=== PATIENT | female | born 1990 | race Caucasian/White ===

== ENCOUNTER 2024-05-28 12:20 | Outpatient (CLI) | payer BC, OTHER ==
[2024-05-28 14:47] VITALS: BP 136/77; PULSE 99; RESP 16; TEMP 97.2
--- NOTE | 2024-05-30 13:37 | P.MSEPDOC ---
Presenting Problems - Arrival Data Date of Arrival on Unit: 05/28/24 Time of Arrival on Unit: 12:20 Mode of Transport: Ambulatory - Complaint OB-Reason for Admission/Chief Complaint: Pain Comment: lower right sided pain 09/25 Medical History - Information : 1 Para: 0 Term: 0 : 0 Abortions: Spontaneous or Elective: 0 Number of Living Children: 0 - Gestational Age Gestational Age by STEVIE (wks/days): 23 Weeks and 5 Days Review of Systems - Review of Systems Constitutional: No problems Breast: No problems ENT: No problems Cardiovascular: No problems Respiratory: No problems Gastrointestinal: No problems Genitourinary: No problems Musculoskeletal: No problems Neurological: No problems Skin: No problems Vital Signs - Temperature Temperature: 97.2 F Temperature Source: Temporal Artery Scan - Pulse Right Brachial Pulse Rate: 99 Pulse Assessment Method: Automatic Cuff - Respirations Respiratory Rate: 16 Oxygen Delivery Method: Room Air O2 Sat by Pulse Oximetry: 97 - Blood Pressure Right Arm Sitting Blood Pressure: 136/77 Blood Pressure Mean: 96 Blood Pressure Source: Automatic Cuff Medical Screen Scoring - Uterine Contractions Frequency From (mins): 0 - Assessment - Baby A Baseline FHR: 150 Heart Rate - NICHD Category: Category I (Normal) NST: Reactive Physician Notification - Physician Notified Physician Notified Date: 05/28/24 Physician Notified Time: 12:49 Physician: Maggie Burns New Order Received: Yes (d/c with instruction) Maternal Triage Index - Maternal Triage Index Presenting for scheduled procedure w/no complaint: No - Stat/Priority 1 Stat Priority 1: No - Urgent/Priority 2 Urgent Priority 2: Yes Provider Notified: Maggie Burns Provider Notified Time: 12:49 Criteria Met for Priority 2: 23.5 lower right sided pain Disposition - Disposition OB Disposition: Triage, Discharge to home, Written follow up instructions reviewed Discharge Date: 05/28/24 Discharge Time: 12:55 I agree with the RN Medical Screening Exam: Yes Case reviewed; plan agreed upon as documented in EMR&OBIX.: Yes Diagnosis: RELATED CONDITIONS, UNSPECIFIED, SECOND TRIMESTER
== END 2024-05-28 12:55 | disposition home or self-care (01) ==
LOC: FBPOP 12:20
PROVIDERS: ATTEND Obstetrics & Gynecology Obstetrics
DX: O26.892 Other specified pregnancy related conditions, second trimester (principal); Z3A.23 23 weeks gestation of pregnancy; R52 Pain, unspecified
CPT/HCPCS: 99213

== ENCOUNTER 2024-07-21 02:31 | Outpatient (CLI) | payer BC ==
[2024-07-21] MEDS: ACETAMINOPHEN TAB 500 MG TAB PO STA (03:32)
[2024-07-21 03:46] LABS: Basophils % (A) 0 %; Eosinophils # (A) 0.1 k/uL (0-0.7); Eosinophils % (A) 2 %; HGB 11.2 gm/dL (11.4-16.0); Lymphocytes # (A) 1.6 k/uL (1.0-4.8); Lymphocytes % (A) 18 %; MCH 29.4 pg (25.0-35.0); MCHC 34.9 g/dL (31.0-37.0); MCV 84.1 fL (80.0-100.0); Mean Platelet Volume 7.7; Monocytes # (A) 0.4 k/uL (0-1.0); Monocytes % (A) 4 %; Neutrophils # (A) 6.6 k/uL (1.3-7.7); Neutrophils % (A) 75 %; Platelet Count 245 k/uL (150-450); RDW 13.1 % (11.5-15.5); WBC 8.8 k/uL (3.8-10.6)
[2024-07-21 04:40] LABS: ALT 17 U/L (4-34); AST 23 U/L (14-36); Amylase 58 U/L (30-110); Lipase 86 U/L (23-300)
--- NOTE | 2024-07-21 05:22 | US ---
EXAM: US Abdomen Limited, Gallbladder CLINICAL HISTORY: ITS.REASON US Reason: Right upper quadrant pain TECHNIQUE: Real-time ultrasound of the right upper quadrant with image documentation. COMPARISON: No relevant prior studies available. FINDINGS: Liver: The liver is enlarged measuring 20.7 cm. Increased echogenicity of the liver. No evidence of hepatic mass. Gallbladder: Unremarkable. No gallstones. Common bile duct: Unremarkable as visualized. No stones. No dilation. Pancreas: Unremarkable as visualized. Right kidney: Moderate right-sided hydronephrosis. IMPRESSION: 1. Nonspecific moderate right-sided hydronephrosis. 2. Hepatomegaly and hepatic steatosis.
--- NOTE | 2024-07-21 05:24 | US ---
EXAM: US Abdomen Complete CLINICAL HISTORY: ITS.REASON US Reason: PAIN TECHNIQUE: Real-time ultrasound of the abdomen with image documentation. COMPARISON: No relevant prior studies available. FINDINGS/IMPRESSION: The appendix is not visualized. No secondary signs of appendicitis. No free fluid or lymphadenopathy.
[2024-07-21 06:30] VITALS: BP 145/80; PULSE 94; RESP 16; TEMP 97.7
[2024-07-21 06:35] LABS: Appearance,Urine Clear (Clear); Bilirubin,Urine Negative (Negative); Blood,Urine Negative (Negative); Color,Urine Yellow; Glucose,Urine (UA) Negative (Negative); Hyaline Casts,Urine 1 /lpf (0-2); Ketones,Urine 1+ (Negative); Leukocyte Esterase,Urine Small (Negative); Mucus,Urine Few /hpf; Nitrite,Urine Negative (Negative); Protein,Urine Negative (Negative); RBC,Urine 1 /hpf (0-5); Squamous Epithelial Cell,Urine 3 /hpf (0-4); Urobilinogen,Urine <2.0 mg/dL (<2.0); WBC,Urine 2 /hpf (0-5)
--- NOTE | 2024-08-10 12:45 | P.MSEPDOC ---
Presenting Problems - Arrival Data Date of Arrival on Unit: 07/21/24 Time of Arrival on Unit: 02:31 Mode of Transport: Portable - Complaint OB-Reason for Admission/Chief Complaint: Other Comment: Right upper quadrant abdominal pain Medical History - Information : 1 Para: 0 Term: 0 : 0 Abortions: Spontaneous or Elective: 0 Number of Living Children: 0 - Gestational Age Gestational Age by STEVIE (wks/days): 31 Weeks and 3 Days Review of Systems - Review of Systems Constitutional: No problems Breast: No problems ENT: No problems Cardiovascular: No problems Respiratory: No problems Gastrointestinal: No problems Genitourinary: No problems Musculoskeletal: No problems Neurological: No problems Skin: No problems Vital Signs - Temperature Temperature: 97.7 F Temperature Source: Temporal Artery Scan - Pulse Pulse Oximetery Pulse Rate: 94 Pulse Assessment Method: Pulse Oximetry - Respirations Respiratory Rate: 16 Oxygen Delivery Method: Room Air O2 Sat by Pulse Oximetry: 98 - Blood Pressure Right Arm Blood Pressure: 145/80 Blood Pressure Mean: 101 Blood Pressure Source: Automatic Cuff Medical Screen Scoring - Cervical Exam Membranes: Intact - Uterine Contractions Intensity: Absent Resting: Soft to palpation - Assessment - Baby A Baseline FHR: 130 Physician Notification - Physician Notified Physician Notified Date: 07/21/24 Physician Notified Time: 02:59 Physician: Tiera Geller Order Received: Yes - Notification Comment Comment: Dr. Geller called, notified of pt complaints of right upper quadrant abdominal pain consistent today rated 4/10, GA, G/P, VS, CAT1 FHT, no contractions on monitor. 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 Abdomen soft and nontender on palpation and pt states pain feels better when pushed against. Orders received for gallbladder ultrasound and Tylenol. Maternal Triage Index - Maternal Triage Index Presenting for scheduled procedure w/no complaint: No - Stat/Priority 1 Stat Priority 1: No - Urgent/Priority 2 Urgent Priority 2: No - Prompt/Priority 3 Prompt Priority 3: No - Non-Urgent/Priority 4 Non-Urgent Priority 4: Yes Criteria Met for Priority 4: Right upper abdominal pain rated 4/10 Disposition - Disposition OB Disposition: Discharge to home Discharge Date: 07/21/24 Discharge Time: 05:44 I agree with the RN Medical Screening Exam: Yes Physician's MSE Comment: I have neither seen nor examined the patient Case reviewed; plan agreed upon as documented in EMR&OBIX.: Yes Diagnosis: MATERNAL CARE FOR PROBLEM, UNSP, THIRD * DO NOT USE *
== END 2024-07-21 05:44 | disposition home or self-care (01) ==
LOC: FBPOP 02:31
PROVIDERS: ATTEND Obstetrics & Gynecology
DX: O36.93X0 Maternal care for fetal problem, unspecified, third trimester, not applicable or unspecified (principal); Z3A.31 31 weeks gestation of pregnancy
CPT/HCPCS: 36415; 59025; 76705; 81001; 82150; 83690; 84450; 84460; 85025; 99213

== ENCOUNTER 2024-09-03 11:43 | Inpatient (IN) | payer BC ==
[2024-09-03] MEDS ORDERED: hydrALAZINE HCL 20 MG/ML 1 ML VIAL IVP PRN (12:22)
[2024-09-03] MEDS ORDERED: LABETALOL 5 MG/ML VIAL MDV IVP PRN ×2 (12:22)
[2024-09-03 12:30] LABS: ALT 13 U/L (4-34); AST 20 U/L (14-36); African American GFR (CKD) >90 (>60 ml/min/1.73 sqM); Blood Urea Nitrogen 12 mg/dL (7-17); LDH 173 U/L (120-246); Non-African American GFR(CKD) >90 (>60 ml/min/1.73 sqM); Uric Acid 5.1 mg/dL (3.7-7.4)
[2024-09-03 12:31] LABS: Basophils % (A) 0 %; Eosinophils # (A) 0.1 k/uL (0-0.7); Eosinophils % (A) 1 %; HCT 34.7 % (34.0-46.0); HGB 11.8 gm/dL (11.4-16.0); Lymphocytes # (A) 1.3 k/uL (1.0-4.8); Lymphocytes % (A) 16 %; MCH 28.2 pg (25.0-35.0); MCHC 33.9 g/dL (31.0-37.0); Mean Platelet Volume 8.2; Monocytes # (A) 0.4 k/uL (0-1.0); Monocytes % (A) 5 %; Neutrophils # (A) 6.2 k/uL (1.3-7.7); Neutrophils % (A) 77 %; Platelet Count 266 k/uL (150-450); RBC 4.19 m/uL (3.80-5.40); RDW 13.2 % (11.5-15.5); WBC 8.1 k/uL (3.8-10.6)
[2024-09-03 13:04] LABS: Appearance,Urine Clear (Clear); Bilirubin,Urine Negative (Negative); Blood,Urine Negative (Negative); Color,Urine Yellow; Glucose,Urine (UA) Negative (Negative); Ketones,Urine Negative (Negative); Leukocyte Esterase,Urine Small (Negative); Mucus,Urine Occasional /hpf; Nitrite,Urine Negative (Negative); PH, Urine 6.5 (5.0-8.0); Protein,Urine Trace (Negative); RBC,Urine <1 /hpf (0-5); Specific Gravity,Urine 1.017 (1.001-1.035); Squamous Epithelial Cell,Urine 3 /hpf (0-4); Urobilinogen,Urine <2.0 mg/dL (<2.0); WBC,Urine 1 /hpf (0-5)
[2024-09-03] MEDS: LACTATED RINGERS 1,000 ML IV SCH (13:10)
[2024-09-03] MEDS: LABETALOL 5 MG/ML VIAL MDV IVP PRN (13:14)
[2024-09-03 13:34] LABS: Creatinine,Urine Random 152.7 mg/dL; Protein/Creatinine Ratio,Urine 0.033
[2024-09-03 14:34] LABS: INR 0.8 (<1.2); Prothrombin Time 9.7 sec (10.0-12.5)
[2024-09-03 14:38] LABS: Partial Thromboplastin Time 20.8 sec (22.0-30.0)
[2024-09-03] MEDS: DINOPROSTONE 10 MG INSERT.ER VAGINAL ONE (14:57)
[2024-09-03] MEDS ORDERED: NALBUPHINE 10 MG/ML (10 ML MDV) IV PRN (19:26)
[2024-09-03] MEDS: CALCIUM CARBONATE 500 MG CHEWABLE PO PRN (20:11)
[2024-09-04] MEDS ORDERED: miSOPROStoL 200 MCG TAB PO PRN (03:45)
[2024-09-04] MEDS ORDERED: TRANEXAMIC 1,000 MG/100ML-NACL 1,000 MG in EMPTY BAG 1 BAG IV PRN (03:45)
[2024-09-04] MEDS ORDERED: CARBOPROST TROMETHAMINE 250 MCG/ML 1 ML AMP IM PRN (03:45)
[2024-09-04] MEDS ORDERED: OXYTOCIN 10 UNIT/ML 1 ML VIAL IM PRN (03:45)
[2024-09-04] MEDS ORDERED: TERBUTALINE 1 MG/ML VIAL SQ PRN (03:45)
[2024-09-04] MEDS ORDERED: METHYLERGONOVINE 0.2 MG/ML 1 ML AMP IM PRN (03:45)
[2024-09-04] MEDS ORDERED: LIDOCAINE 0.5% (PF) 5 MG/ML (50 ML SDV) SQ PRN (03:45)
[2024-09-04] MEDS ORDERED: miSOPROStoL 200 MCG TAB RECTAL PRN (03:45)
[2024-09-04] MEDS: AMPICILLIN 2,000 MG in SODIUM CHLORIDE 0.9% 100 ML IVPB STA (04:09)
[2024-09-04] MEDS: OXYTOCIN 30 UNITS/500 ML NS 30 UNIT in SALINE 1 500ML.BAG IV SCH (04:15)
[2024-09-04] MEDS: ACETAMINOPHEN IV (For NPO) 1,000 MG in EMPTY BAG 1 BAG IVPB STA (07:56)
[2024-09-04] MEDS: LABETALOL 100 MG TAB PO STA (07:56)
[2024-09-04] MEDS: AMPICILLIN 1,000 MG in SODIUM CHLORIDE 0.9% 50 ML IVPB SCH (08:28)
--- NOTE | 2024-09-04 09:13 | P.HPOB ---
History of Present Illness H&P Date: 09/03/24 Chief Complaint: IUP at 37-5/7 weeks, preeclampsia without severe features This is a 34-year-old G1, P0 at 37-5/7 weeks that presents to labor and delivery from the office after elevated blood pressures 150s to 160s over 100s were noted. Patient denied signs of symptoms of preeclampsia. Upon presentation to labor and delivery blood pressures were noted to be 160s to 170s over 100s. Patient was given IV labetalol x 1 with good relief of hypertension, follow-up blood pressure 130s over 80s. Patient has been receiving routine care which has been essentially un complicated to this point. Patient notes good movement denies contractions vaginal bleeding or loss of fluid. On blood work this patient is a blood type of A+, rubella status immune, hepatitis B surface antigen negative, HIV negative, RPR is nonreactive, grew beta strep culture is positive Review of Systems Constitutional: Denies chills, Denies fatigue, Denies fever Ears, nose, mouth and throat: Denies headache Cardiovascular: Reports leg edema Respiratory: Denies dyspnea Gastrointestinal: Denies constipation, Denies diarrhea, Denies heartburn, Denies nausea, Denies vomiting Genitourinary: Reports Past Medical History Past Medical History: No Reported History History of Any Multi-Drug Resistant Organisms: None Reported Past Surgical History: Adenoidectomy, Tonsillectomy Additional Past Surgical History / Comment(s): ureter surgery 1997 Past Anesthesia/Blood Transfusion Reactions: No Reported Reaction Past Psychological History: No Psychological Hx Reported Smoking Status: Never smoker Past Drug Use History: None Reported - Past Family History Mother History Unknown: Yes Family Medical History: Cancer Additional Family Medical History / Comment(s): breast cancer Brother(s) History Unknown: Yes Family Medical History: Neurologic Disorder Additional Family Medical History / Comment(s): epilepsy Medications and Allergies Home Medications Medication Instructions Recorded Confirmed Type Aspirin [Children's Aspirin] 81 mg PO DAILY 05/28/24 09/03/24 History Vit No.179/Iron/Folic 1 tab PO TID 05/28/24 09/03/24 History [ Tablet] Calcium Carbonate [Tums] 1,000 mg PO QID PRN 07/21/24 09/03/24 History Allergies Allergy/AdvReac Type Severity Reaction Status Date / Time No Known Allergies Allergy Verified 05/28/24 14:27 Exam Osteopathic Statement: *. No significant issues noted on an osteopathic structural exam other than those noted in the History and Physical/Consult. Vital Signs Temp Pulse Resp BP Pulse Ox 09/03/24 13:19 97.1 F L 88 17 184/84 98 Intake and Output 09/03/24 09/03/24 09/03/24 06:59 14:59 22:59 Other: # Voids 1 Weight 149.685 kg Targeted physical exam is performed this date Is a well-nourished well- developed female in no acute distress, breathing is nonlabored, heart has a regular rate and rhythm, abdomen is gravid, on cervical exam she is a type II/50/-3 station vertex presentation Cervidil is placed without difficulty. heart tones are noted to be category 1 and she is diane irregularly with irritability appreciated. Results Result Diagrams: 09/03/24 12:09 09/03/24 12:09 Abnormal Lab Results - Last 24 Hours (Table) 09/03/24 09/03/24 Range/Units 12:09 12:50 PT 9.7 L (10.0-12.5) sec APTT 20.8 L (22.0-30.0) sec Fibrinogen 548 H (200-500) mg/dL Urine Protein Trace H (Negative) Ur Leukocyte Esterase Small H (Negative) Urine Mucus Occasional H (None) /hpf Assessment and Plan (1) Term Current Visit: Yes Status: Acute Code(s): Z34.90 - ENCNTR FOR SUPRVSN OF NORMAL , UNSP, UNSP TRIMESTER SNOMED Code(s): 29263465 (2) Pre-eclampsia Current Visit: Yes Status: Acute Code(s): O14.90 - UNSPECIFIED PRE- ECLAMPSIA, UNSPECIFIED TRIMESTER SNOMED Code(s): 919269476 (3) Positive GBS test Current Visit: Yes Status: Acute Code(s): B95.1 - STREPTOCOCCUS, GROUP B, CAUSING DISEASES CLASSD ELSWHR SNOMED Code(s): 868495029 Plan: Admit to labor and delivery for Cervidil induction of labor Regular diet while Cervidil in place Clear liquids after midnight Options for analgesia Nubain, nitrous, epidural if making cervical change Continuous monitoring, toco Plan Cervidil removal at 3 AM, Pitocin to begin around 4 AM for augmentation of labor. Plan is discussed with patient and her significant other all questions are answered, patient agrees.
[2024-09-04] MEDS ORDERED: SODIUM CHLORIDE 0.9% 250 ML BAG ONE (11:56)
[2024-09-04] MEDS ORDERED: fentaNYL (PF) 50 MCG/ML 5 ML AMP ONE (11:56)
[2024-09-04] MEDS ORDERED: ROPIVACAINE 5 MG/ML 30 ML VIAL ONE (11:56)
[2024-09-04] MEDS: LABETALOL 200 MG TAB PO SCH (12:37)
[2024-09-04] MEDS: LACTATED RINGERS 1,000 ML IV SCH ×2 (14:25→22:47)
[2024-09-04] MEDS: ONDANSETRON 4 MG/2 ML VIAL IVP STA (16:59)
[2024-09-04] MEDS: CITRIC ACID-SODIUM CITRATE 15 ML CUP PO ONE (19:30)
[2024-09-04] MEDS: ceFAZolin 3 GM in SODIUM CHLORIDE 0.9% 100 ML IVPB ONE (19:41)
[2024-09-04] MEDS ORDERED: fentaNYL (PF) 50 MCG/ML 2 ML AMP ONE (19:47)
[2024-09-04] MEDS ORDERED: ONDANSETRON 4 MG/2 ML VIAL ONE (19:47)
[2024-09-04] MEDS ORDERED: MORPHINE SULFATE (PF) 0.3 MG/0.3 ML SYR ONE (19:47)
[2024-09-04] MEDS ORDERED: OXYTOCIN 10 UNIT/ML 1 ML VIAL ONE (19:47)
[2024-09-04] MEDS ORDERED: LIDOCAINE 2% SYG (PF) 100 MG/5 ML ONE (19:47)
--- NOTE | 2024-09-04 20:31 | P.OP ---
Date of Procedure: 09/04/24 Preoperative Diagnosis: IUP at 37 and 6/7 weeks, preeclampsia without severe features, arrest of dilation, patient request Postoperative Diagnosis: same Procedure(s) Performed: Primary low-transverse section Anesthesia: epidural Surgeon: Maggie Burns Aging Box Hand #1: Jossue Santiago Estimated Blood Loss (ml): 780 IV fluids (ml): 600 Urine output (ml): 300 Pathology: none sent Condition: stable Disposition: observation Indications for Procedure: 34-year-old 1 para 0 at 37-6/7 weeks that presented to the office yesterday for routine visit. Elevated blood pressure was noted as 150s over 100. Patient denies signs or symptoms of preeclampsia but was sent to labor and delivery for serial blood pressures and preeclampsia labs. Labs were negative protein creatinine ratio 0.3. Continued elevated blood pressures were noted and patient did receive IV labetalol x 1. Patient was admitted to labor and delivery and Cervidil was placed. Patient was noted be 2 cm at the time of Cervidil placement. Patient progressed through the evening noting mild cramping. Morning patient was noted to be 2 to 3 cm 50% effaced -2 station amniotomy is performed clear fluid is obtained. Pitocin augmentation of labor was begun around 5 or 4 AM. Rupture of membranes was performed at 857. Patient made slow progress to the day, she did become uncomfortable and request epidural. Epidural was placed without difficulty by the anesthesia department. Patient progressed to 4 cm around 1130 this morning. Patient made no further change through the day. Given arrest of dilation patient was counseled on proceeding versus performing primary . Multiple questions were answered. Patient elected to proceed with section. All questions were answered. Patient and significant other agree with plan of care. Anesthesia was notified. Operative Findings: Viable male infant delivered at 1957, weight of 8 pounds 4 ounces, Apgars of 7 and 9 at 1 and 5 minutes respectively. Right lateral fundal fibroid was appreciated approximately 5 cm. Normal ovaries were appreciated. Description of Procedure: The patient was prepped and draped in the usual fashion after epidural anesthesia was found to be adequate by the anesthesia department. A Pfannenstiel incision was made and extended of the abdominal cavity without difficulty. The bladder peritoneum was elevated and incised and reflected distally. A 2 cm incision was made in the transverse plane of the lower uterine segment to enter the uterus at which time clear fluid was noted. The incision was extended in both directions using the bandage scissors. The head was encountered within the field and delivered up and through the incision where the nose and mouth were thoroughly suctioned. Remainder of the was delivered onto the surgical field where the cord was doubly clamped, cut, and the infant was passed for resuscitative measures with weight and Apgars as noted above. The placenta was delivered manually, intact, and was grossly normal with a grossly normal three-vessel cord. The uterus was exteriorized and the interior cavity of the uterus swept of any remaining placental and membranous fragments with a laparotomy sponge. The margins of the incision were grasped with Quintanilla clamps and the incision closed in 2 layers. First layer was a running locking layer of 0 Vicryl from margin to margin followed by a second layer of imbricating 0 Vicryl from margin to margin. Any small points of bleeding were then made hemostatic with the Bovie. Once hemostasis was achieved, the posterior cul-de-sac was suctioned with a guard and the uterine and ovarian findings are as noted above. The uterus was replaced within the abdominal cavity and the gutters swept of any remaining blood fluid or clot. The incision was again reexamined and hemostasis was noted to be excellent. Any small point of bleeding were made hemostatic with the Bovie. Once hemostasis was achieved the parietal peritoneum was loosely reapproximated. The layer of muscles were examined and made hemostatic with the Bovie. Attention was then turned to the fascia which was closed with 2 running stitches of 0 Vicryl proceeding from the lateral margins to the midpoint. The subcutaneous tissues were irrigated, made hemostatic with the Bovie, and reapproximated with a running stitch of 30 Vicryl. The skin was reapproximated with 4-0 Vicryl. Estimated blood loss for the case was approximately 780 mL. All sponge instrument and needle counts are correct. There were no complications. The patient tolerated the procedure well and proceeded to the recovery room in stable condition. Both mother and are resting comfortably in recovery.
[2024-09-04] MEDS: IBUPROFEN IV 800 MG in SODIUM CHLORIDE 0.9% 250 ML IV ONE (21:02)
[2024-09-04] MEDS ORDERED: ONDANSETRON 4 MG/2 ML VIAL IVP PRN (21:41)
[2024-09-04] MEDS ORDERED: diphenhydrAMINE 25 MG CAP PO PRN (21:41)
[2024-09-04] MEDS ORDERED: diphenhydrAMINE 50 MG/ML 1 ML VIAL IVP PRN ×2 (21:41)
[2024-09-04] MEDS ORDERED: NALOXONE 0.4 MG/ML 1 ML VIAL IV PRN (21:41)
[2024-09-04] MEDS ORDERED: METOCLOPRAMIDE 5 MG/ML 2 ML VIAL IVP PRN (21:41)
[2024-09-04] MEDS ORDERED: diphenhydrAMINE 50 MG CAP PO PRN (21:41)
[2024-09-04] MEDS ORDERED: SIMETHICONE 80 MG CHEWABLE PO PRN (21:41)
[2024-09-04] MEDS ORDERED: ZOLPIDEM 5 MG TAB PO PRN (21:41)
[2024-09-04] MEDS: IBUPROFEN 800 MG TAB PO SCH (21:49)
[2024-09-04] MEDS: SENNOSIDES-DOCUSATE SODIUM 1 EACH TAB PO SCH (22:22)
[2024-09-05] MEDS: ACETAMINOPHEN IV (For NPO) 1,000 MG in EMPTY BAG 1 BAG IVPB ONE (01:06)
[2024-09-05] MEDS: ACETAMINOPHEN TAB 500 MG TAB PO SCH (02:04)
[2024-09-05 07:04] LABS: Basophils % (A) 0 %; Eosinophils % (A) 0 %; Hypochromasia Slight; Lymphocytes % (A) 9 %; MCHC 33.2 g/dL (31.0-37.0); MCV 84.3 fL (80.0-100.0); Mean Platelet Volume 8.6; Monocytes # (A) 0.4 k/uL (0-1.0); Monocytes % (A) 3 %; Neutrophils % (A) 87 %; Platelet Count 215 k/uL (150-450); RBC 3.55 m/uL (3.80-5.40); RDW 13.4 % (11.5-15.5); WBC 11.5 k/uL (3.8-10.6)
--- NOTE | 2024-09-05 09:20 | P.PN ---
Progress Note - Text Progress Note Date: 09/05/24 (647) Anesthesia Postop day 1 Subjective: Status Post section with Duramorph. Patient seen and examined. Doing well without complaint. VAS 2 out of 10. No nausea or vomiting. Mild pruritus tolerable.. Denies fever. Gross lower extremity strength intact. Without apparent anesthetic complications. Objective: Vital signs reviewed Heart: Regular Rate Lungs: Good chest excursion Abdomen: Appears nondistended Assessment: Status post section with Duramorph postop day 1 Plan: 1. Continue current care with your medical management. Anticipated end to the duration of the Duramorph around surgery time today. You may see increased pain needs around this time. 2. This note was dictated using Pyreos software. Please be advised there is a potential for misspellings or errors in records custodian.
--- NOTE | 2024-09-05 09:45 | P.PNOBGPC ---
Subjective - Subjective Principal diagnosis: Postop day 1, primary Interval history: Patient is doing well postoperatively. She is ambulating and voiding without difficulty. She is tolerating a regular diet without nausea or vomiting. She states her pain is well-controlled. Blood pressures remained stable through the night. Patient reports: Reports appetite normal, Reports voiding normally, Reports pain well controlled, Reports ambulating normally [place]: doing well Objective - Vital Signs Latest vital signs: Vital Signs Temp Pulse Resp BP Pulse Ox 09/05/24 04:00 97.6 F 77 18 124/81 99 09/05/24 00:00 98.5 F 78 16 106/79 98 09/04/24 22:31 98.3 F 83 18 109/62 97 09/04/24 22:16 87 18 122/63 97 09/04/24 22:01 76 16 122/59 100 09/04/24 21:46 84 18 116/56 97 09/04/24 21:31 87 18 123/55 97 09/04/24 21:16 80 16 120/62 98 09/04/24 21:01 84 18 118/61 100 09/04/24 20:46 77 16 110/55 100 09/04/24 20:31 97.9 F 79 18 98/55 98 Intake and Output 09/04/24 09/05/24 09/05/24 22:59 06:59 14:59 Intake Total 334.333 200 Output Total 1242 275 Balance -907.667 -75 Intake: IV 140 Intake, IV Titration 194.333 Amount Oxytocin 30 Units/500 ml 194.333 Ns 30 unit In Saline 1 500ml.bag @ Per Protocol IV .Q0M [facility], [facility]–1983 Rx#:[id number] Oral 200 Output: Urine 300 200 Uretheral (Holman) 200 Emesis 75 Output, Quantitative 942 Blood Loss Other: Voiding Method Indwelling Catheter Indwelling Catheter - Exam Extremities: Present: normal, edema Abdomen: Present: normal appearance, soft Incision: Present: normal, dry, intact Uterus: Present: normal, firm - Labs Labs: Abnormal Lab Results - Last 24 Hours (Table) 09/05/24 Range/Units 06:40 WBC 11.5 H (3.8-10.6) k/uL RBC 3.55 L (3.80-5.40) m/uL Hgb 10.0 L D (11.4-16.0) gm/dL Hct 30.0 L (34.0-46.0) % Neutrophils # 10.0 H (1.3-7.7) k/uL Assessment and Plan (1) Term Current Visit: Yes Status: Acute Code(s): Z34.90 - ENCNTR FOR SUPRVSN OF NORMAL , UNSP, UNSP TRIMESTER SNOMED Code(s): 23951368 (2) Pre-eclampsia Current Visit: Yes Status: Acute Code(s): O14.90 - UNSPECIFIED PRE- ECLAMPSIA, UNSPECIFIED TRIMESTER SNOMED Code(s): 531992284 (3) Positive GBS test Current Visit: Yes Status: Acute Code(s): B95.1 - STREPTOCOCCUS, GROUP B, CAUSING DISEASES CLASSD ELSR SNOMED Code(s): 068608760 (4) Arrest of dilation, delivered, current hospitalization Current Visit: Yes Status: Acute Code(s): O62.1 - SECONDARY UTERINE INERTIA SNOMED Code(s): 76714055 (5) Status post section Current Visit: Yes Status: Acute Code(s): Z98.891 - HISTORY OF UTERINE SCAR FROM PREVIOUS SURGERY SNOMED Code(s): 628337875 Plan: Patient is doing well postoperatively. Blood pressures remain stable, no requirements for p.o. labetalol. Continue routine postoperative care
[2024-09-05] MEDS: PRENATAL VIT-IRON-FOLIC ACID 1 EACH TABLET PO SCH (11:18)
[2024-09-05 20:37] VITALS: RESP 16
[2024-09-06 08:47] VITALS: PULSE 75; TEMP 97.8
--- NOTE | 2024-09-06 09:17 | P.DS ---
Providers Date of admission: 09/03/24 12:28 Expected date of discharge: 09/06/24 Attending physician: Maggie Burns Primary care physician: Stated None Hospital Course: Ms. Gresham is a 34 year old now POD#2 s/p primary section for arrest of dilation after induction of labor at 37+ weeks for pre-eclampsia without severe features. Please reference the operative report for more information on the surgery itself. The patient is doing well this morning and had no acute events overnight. She has no complaints this morning. She reports minimal lochia, passing flatus, voiding without difficulty, ambulating, and eating/drinking without nausea or vomiting. Infant doing well at bedside, s/p circumcision. She denies chest pain, shortness of breathing, fevers, or chills overnight. She denies pain or swelling in the legs. Postoperative restrictions are reviewed with the patient including pelvic rest for 6 weeks, no lifting heavier than 15 pounds for 6 weeks. The patient is encouraged to call the office if she experiences any heavy bleeding, foul-smelling discharge, breast complaints, or any if she has any other concerns. Her blood pressures have essentially all been normotensive since delivery aside from one very mildly elevated blood pressure this morning. She denies signs or symptoms of pre- eclampsia. She will follow up in the office with Dr. Burns in 1 weeks for blood pressure check. She plans to use OTC Motrin and Tylenol as needed for pain. All questions are answered. Patient Condition at Discharge: Good Plan - Discharge Summary New Discharge Prescriptions: No Action Vit No.179/Iron/Folic [ Tablet] 1 tab PO TID Aspirin [Children's Aspirin] 81 mg PO DAILY Calcium Carbonate [Tums] 1,000 mg PO QID PRN PRN Reason: Heartburn Discharge Medication List Aspirin [Children's Aspirin] 81 mg PO DAILY 05/28/24 [History] Vit No.179/Iron/Folic [ Tablet] 1 tab PO TID 05/28/24 [History] Calcium Carbonate [Tums] 1,000 mg PO QID PRN 07/21/24 [History] Follow up Appointment(s)/Referral(s): Maggie Burns DO [Doctor of Osteopathic Medicine] - 1 Week (Incision check 09/18/24 at 2:30 PM Post Appointment 10/15/24 1:00 PM) Activity/Diet/Wound Care/Special Instructions: Instructions 1. Do not begin any exercise program for 3 weeks. 2. Do not resume sexual relations for 6 weeks or longer if uncomfortable. 3. You may take tub baths or showers at any time. 4. You may use tampons if desired after 6 weeks. 5. Keep any areas repaired with stitches clean and dry. 6. If you are not nursing, wear a good fitting, supportive bra during the day and limit fluid intake for at least 1 week to prevent breast engorgement. 7. Call the office, , within the next week to make appointment for your 6 week checkup if it has not already been made. 8. Report any of the following occurrences to the doctor promptly: a. Heavy, excessive bleeding b. Chills, fever c. Burning or frequency of urination d. Pain or redness and breasts if nursing e. Increasing pain or swelling of vulva (stitches). In addition to the above instructions, the following additional should be followed: 1. No heavy lifting or straining (exercising) until after 6 week checkup. 2. Keep abdominal incision clean and dry: You may wear a dressing if more comfortable. 3. Make office appointment for 2 weeks after delivery date. Discharge Disposition: HOME SELF-CARE
[2024-09-06 12:28] VITALS: BP 145/89
== END 2024-09-06 16:31 | disposition home or self-care (01) | DRG 788 ==
LOC: FBPOP 11:43 → 4FBP 12:28
PROVIDERS: ADMIT Obstetrics & Gynecology Obstetrics; ATTEND Obstetrics & Gynecology Obstetrics
PROC: 3E0P7VZ Introduction of Hormone into Female Reproductive, Via Natural or Artificial Opening (ICD-10-PCS; principal; 2024-09-03)
PROC: 10D00Z1 Extraction of Products of Conception, Low, Open Approach (ICD-10-PCS; 2024-09-04)
PROC: 10907ZC Drainage of Amniotic Fluid, Therapeutic from Products of Conception, Via Natural or Artificial Opening (ICD-10-PCS; 2024-09-04)
DX: O14.04 Mild to moderate pre-eclampsia, complicating childbirth (principal); D25.9 Leiomyoma of uterus, unspecified; O62.0 Primary inadequate contractions; O99.824 Streptococcus B carrier state complicating childbirth; O34.13 Maternal care for benign tumor of corpus uteri, third trimester; O99.73 Diseases of the skin and subcutaneous tissue complicating the puerperium; L29.9 Pruritus, unspecified; Z79.82 Long term (current) use of aspirin; Z3A.37 37 weeks gestation of pregnancy; Z37.0 Single live birth
CPT/HCPCS: 36415; 59025; 81001; 82565; 82570; 83615; 84156; 84450; 84460; 84520; 84550; 85025; 85384; 85610; 85730; 86850; 86900; 86901